=== PATIENT | male | born 1945 | race Caucasian/White ===

== ENCOUNTER 2019-08-25 13:31 | Outpatient (CLI) | payer MEDICARE, OTHER ==
[2019-08-25 18:03] LABS: CALCIUM 8.9 mg/dL (8.5-10.3); CREATININE 0.9 mg/dL (0.6-1.2)
== END 2019-08-25 13:32 | disposition home or self-care (01) ==
LOC: LAB.S 13:31
PROVIDERS: ATTEND Internal Medicine
DX: Z79.01 Long term (current) use of anticoagulants (principal); R60.9 Edema, unspecified
CPT/HCPCS: 36415; 80048; 85610

== ENCOUNTER 2019-09-01 11:24 | Outpatient (CLI) | payer MEDICARE, OTHER | END 2019-09-01 11:25 | disposition home or self-care (01) | LOC: LAB.S 11:24 | PROVIDERS: ATTEND Internal Medicine | DX: Z79.01 Long term (current) use of anticoagulants (principal); I48.91 Unspecified atrial fibrillation | CPT/HCPCS: 85610 ==

== ENCOUNTER 2019-09-08 10:56 | Outpatient (CLI) | payer MEDICARE, OTHER | END 2019-09-08 10:57 | disposition home or self-care (01) | LOC: LAB.S 10:56 | PROVIDERS: ATTEND Internal Medicine | DX: Z79.01 Long term (current) use of anticoagulants (principal); I48.91 Unspecified atrial fibrillation | CPT/HCPCS: 85610 ==

== ENCOUNTER 2019-09-30 13:20 | Outpatient (CLI) | payer MEDICARE, OTHER | END 2019-09-30 13:21 | disposition home or self-care (01) | LOC: LAB.S 13:20 | PROVIDERS: ATTEND Internal Medicine | DX: Z79.01 Long term (current) use of anticoagulants (principal); I48.91 Unspecified atrial fibrillation | CPT/HCPCS: 85610 ==

== ENCOUNTER 2020-06-21 13:44 | Outpatient (CLI) | payer MEDICARE, OTHER | END 2020-06-21 13:45 | disposition home or self-care (01) | LOC: LAB.S 13:44 | PROVIDERS: ATTEND Internal Medicine | DX: I48.91 Unspecified atrial fibrillation (principal); Z79.01 Long term (current) use of anticoagulants | CPT/HCPCS: 85610 ==

== ENCOUNTER 2020-07-23 12:37 | Outpatient (CLI) | payer MEDICARE, OTHER ==
[2020-07-23 20:08] LABS: BASOPHILS % (AUTO) 0.7 %; EOSINOPHILS # (AUTO) 0.1 10^3/uL (0.0-0.7); EOSINOPHILS % (AUTO) 1.5 %; HGB - HEMOGLOBIN 14.9 g/dL (14.0-18.0); LYMPHOCYTES # (AUTO) 1.4 10^3/uL (1.5-3.5); LYMPHOCYTES % (AUTO) 33.6 %; MEAN CORPUSCULAR HEMOGLOBIN 32.1 pg (27.0-31.0); MEAN CORPUSCULAR HGB CONC 34.2 g/dL (32.0-36.0); MEAN PLATELET VOLUME 11.5 fL (7.4-11.4); MONOCYTES # (AUTO) 0.4 10^3/uL (0.0-1.0); MONOCYTES % (AUTO) 8.6 %; NEUTROPHILS # (AUTO) 2.2 10^3/uL (1.5-6.6); NEUTROPHILS % (AUTO) 55.4 %; PLT - PLATELET COUNT 126 10^3/uL (130-450); RED BLOOD COUNT 4.64 10^6/uL (4.70-6.10); RED CELL DISTRIBUTION WIDTH 12.6 % (12.0-15.0); WHITE BLOOD COUNT 4.1 x10^3/uL (4.8-10.8)
[2020-07-23 20:09] LABS: INR 2.5 (0.8-1.2); PT - PROTHROMBIN TIME 26.5 secs (9.9-12.6)
[2020-07-23 20:14] LABS: ALBUMIN 4.3 g/dL (3.2-5.5); ALBUMIN/GLOBULIN RATIO 1.5 (1.0-2.2); ALKALINE PHOSPHATASE 66 IU/L (42-121); ALT ALANINE AMINOTRANSFERASE < 10 IU/L (10-60); AST ASPARTATE AMINOTRANSFERASE 13 IU/L (10-42); BILIRUBIN,TOTAL 0.8 mg/dL (0.2-1.0); BUN - BLOOD UREA NITROGEN 20 mg/dL (6-20); CALCIUM 9.1 mg/dL (8.5-10.3); CARBON DIOXIDE - CO2 29 mmol/L (21-32); CHLORIDE 103 mmol/L (101-111); GLUCOSE 84 mg/dL (70-100); SODIUM 141 mmol/L (135-145); TOTAL PROTEIN 7.1 g/dL (6.7-8.2)
== END 2020-07-23 12:38 | disposition home or self-care (01) ==
LOC: LAB.S 12:37
PROVIDERS: ATTEND Internal Medicine
DX: Z79.01 Long term (current) use of anticoagulants (principal); I48.91 Unspecified atrial fibrillation; I10 Essential (primary) hypertension; Z12.5 Encounter for screening for malignant neoplasm of prostate
CPT/HCPCS: 36415; 80053; 85025; 85610; G0103; 84153

== ENCOUNTER 2020-08-07 15:06 | Outpatient (CLI) | payer MEDICARE, OTHER | END 2020-08-07 15:07 | disposition home or self-care (01) | LOC: LAB.S 15:06 | PROVIDERS: ATTEND Internal Medicine | DX: I48.91 Unspecified atrial fibrillation (principal); Z79.01 Long term (current) use of anticoagulants | CPT/HCPCS: 85610 ==

== ENCOUNTER 2020-09-11 12:48 | Outpatient (CLI) | payer MEDICARE, OTHER | END 2020-09-11 12:49 | disposition home or self-care (01) | LOC: LAB.S 12:48 | PROVIDERS: ATTEND Internal Medicine | DX: I48.91 Unspecified atrial fibrillation (principal); Z79.01 Long term (current) use of anticoagulants | CPT/HCPCS: 85610 ==

== ENCOUNTER 2020-11-06 09:58 | Outpatient (CLI) | payer MEDICARE, OTHER | END 2020-11-06 09:59 | disposition home or self-care (01) | LOC: LAB.S 09:58 | PROVIDERS: ATTEND Internal Medicine | DX: I48.91 Unspecified atrial fibrillation (principal); Z79.01 Long term (current) use of anticoagulants | CPT/HCPCS: 85610 ==

== ENCOUNTER 2020-12-12 10:22 | Outpatient (CLI) | payer MEDICARE, OTHER | END 2020-12-12 10:23 | disposition home or self-care (01) | LOC: LAB.S 10:22 | PROVIDERS: ATTEND Internal Medicine | DX: I48.91 Unspecified atrial fibrillation (principal); Z79.01 Long term (current) use of anticoagulants | CPT/HCPCS: 85610 ==

== ENCOUNTER 2021-01-07 11:17 | Outpatient (CLI) | payer MEDICARE, OTHER | END 2021-01-07 11:18 | disposition home or self-care (01) | LOC: LAB.S 11:17 | PROVIDERS: ATTEND Internal Medicine | DX: I48.91 Unspecified atrial fibrillation (principal); Z79.01 Long term (current) use of anticoagulants | CPT/HCPCS: 85610 ==

== ENCOUNTER 2021-02-12 12:49 | Outpatient (CLI) | payer MEDICARE, OTHER | END 2021-02-12 12:50 | disposition home or self-care (01) | LOC: LAB.S 12:49 | PROVIDERS: ATTEND Internal Medicine | DX: I48.91 Unspecified atrial fibrillation (principal); Z79.01 Long term (current) use of anticoagulants | CPT/HCPCS: 36416; 85610 ==

== ENCOUNTER 2021-03-21 13:34 | Outpatient (CLI) | payer MEDICARE, OTHER | END 2021-03-21 13:35 | disposition home or self-care (01) | LOC: LAB.S 13:34 | PROVIDERS: ATTEND Internal Medicine | DX: I48.91 Unspecified atrial fibrillation (principal); Z79.01 Long term (current) use of anticoagulants | CPT/HCPCS: 36416; 85610 ==

== ENCOUNTER 2021-03-29 08:00 | Outpatient (CLI) | payer MEDICARE, OTHER ==
--- NOTE | 2021-03-29 16:54 | XRAY Report ---
PROCEDURE: Knee 3 View RT INDICATIONS: OSTEOARTHRITIS RIGHT KNEE TECHNIQUE: 3 views of the right knee(s) were acquired. COMPARISON: X-ray knee 05/25/2020 FINDINGS: Bones: No fractures or dislocations. No suspicious bony lesions. There is moderate to severe media l lateral as well as patellofemoral compartment narrowing. Prominent periarticular osteophytes are pr esent. Subchondral sclerosis is present. Chondrocalcinosis is noted. No erosions. There has been over all minimal progression compared to prior exam. Mild medial patellar subluxation is present. Soft tissues: Mild joint effusion. No suspicious soft tissue calcifications. IMPRESSION: Moderate to severe tricompartmental arthritic change with minimal interval progression. Reviewed by: Radha Davis MD on 03/29/2021 4:53 PM PDT Approved by: Radha Davis MD on 03/29/2021 4:53 PM PDT Station ID: [id number]
== END 2021-03-29 23:59 | disposition home or self-care (01) ==
LOC: DI.S 08:00
PROVIDERS: ATTEND Emergency Medicine
DX: M17.11 Unilateral primary osteoarthritis, right knee (principal)

== ENCOUNTER 2021-05-06 11:14 | Outpatient (CLI) | payer MEDICARE, OTHER | END 2021-05-06 11:15 | disposition home or self-care (01) | LOC: LAB.S 11:14 | PROVIDERS: ATTEND Internal Medicine | DX: I48.91 Unspecified atrial fibrillation (principal); Z79.01 Long term (current) use of anticoagulants | CPT/HCPCS: 36416; 85610 ==

== ENCOUNTER 2021-05-07 10:26 | Outpatient (CLI) | payer MEDICARE, OTHER ==
[2021-05-07 14:25] LABS: BASOPHILS % (AUTO) 0.5 %; EOSINOPHILS # (AUTO) 0.1 10^3/uL (0.0-0.7); EOSINOPHILS % (AUTO) 1.3 %; HCT - HEMATOCRIT 44.2 % (42.0-52.0); HGB - HEMOGLOBIN 14.8 g/dL (14.0-18.0); LYMPHOCYTES # (AUTO) 1.1 10^3/uL (1.5-3.5); LYMPHOCYTES % (AUTO) 26.7 %; MEAN CORPUSCULAR HEMOGLOBIN 31.2 pg (27.0-31.0); MEAN CORPUSCULAR HGB CONC 33.5 g/dL (32.0-36.0); MEAN CORPUSCULAR VOLUME 93.2 fL (80.0-94.0); MEAN PLATELET VOLUME 11.4 fL (7.4-11.4); MONOCYTES # (AUTO) 0.3 10^3/uL (0.0-1.0); MONOCYTES % (AUTO) 6.5 %; NEUTROPHILS # (AUTO) 2.6 10^3/uL (1.5-6.6); NEUTROPHILS % (AUTO) 64.7 %; PLT - PLATELET COUNT 126 10^3/uL (130-450); RED BLOOD COUNT 4.74 10^6/uL (4.70-6.10); RED CELL DISTRIBUTION WIDTH 12.6 % (12.0-15.0)
[2021-05-07 14:42] LABS: ALBUMIN 4.4 g/dL (3.2-5.5); ALBUMIN/GLOBULIN RATIO 1.4 (1.0-2.2); ALKALINE PHOSPHATASE 66 IU/L (42-121); ALT ALANINE AMINOTRANSFERASE < 10 IU/L (10-60); AST ASPARTATE AMINOTRANSFERASE 12 IU/L (10-42); BILIRUBIN,TOTAL 1.3 mg/dL (0.2-1.0); BUN - BLOOD UREA NITROGEN 17 mg/dL (6-20); CALCIUM 9.1 mg/dL (8.5-10.3); CARBON DIOXIDE - CO2 30 mmol/L (21-32); CHLORIDE 102 mmol/L (101-111); CHOLESTEROL 170 mg/dL; CREATININE 0.9 mg/dL (0.6-1.2); GFR - MDRD 82 (>89); GLUCOSE 97 mg/dL (70-100); HDL CHOLESTEROL 42 mg/dL; LDL CHOLESTEROL,CALCULATED 115 mg/dL; LDL/HDL RATIO 2.7 (<3.6); POTASSIUM 3.9 mmol/L (3.5-5.0); SODIUM 141 mmol/L (135-145); TOTAL PROTEIN 7.6 g/dL (6.7-8.2); TRIGLYCERIDES 64 mg/dL; VLDL CHOLESTEROL 13 mg/dL
== END 2021-05-07 10:27 | disposition home or self-care (01) ==
LOC: LAB.S 10:26
PROVIDERS: ATTEND Internal Medicine
DX: I10 Essential (primary) hypertension (principal); Z12.5 Encounter for screening for malignant neoplasm of prostate
CPT/HCPCS: 36415; 80053; 80061; 85025; G0103; 83721; 84153

== ENCOUNTER 2021-06-04 11:00 | Outpatient (CLI) | payer MEDICARE, OTHER ==
--- NOTE | 2021-06-04 15:33 | XRAY Report ---
PROCEDURE: Knee 4 View RT INDICATIONS: OA, R KNEE TECHNIQUE: 4 views of the right knee(s) were acquired. COMPARISON: 03/29/2021 FINDINGS: Bones: No fractures or dislocations. Subcortical cystic changes throughout the tibiofemoral joint. M oderately severe medial and lateral compartment joint space loss with prominent spur formation. There is bone on bone in the lateral compartment with weightbearing. No suspicious bony lesions. Soft tissues: There is a small to moderate, debris-containing joint effusion present. Chondrocalcinos is in medial and patellofemoral compartment is seen. There is moderate asymmetric periarticular soft tissue swelling. IMPRESSION: 1. Severe tricompartment right knee osteoarthritic changes. 2. Chondrocalcinosis and debris containing joint effusion. 3. Changes are stable compared to the prior study. Reviewed by: Any Bahena MD on 06/04/2021 3:32 PM PDT Approved by: Any Bahena MD on 06/04/2021 3:32 PM PDT Station ID: [id number]
== END 2021-06-04 23:59 | disposition home or self-care (01) ==
LOC: DI.N 11:00
PROVIDERS: ATTEND Orthopaedic Surgery
DX: M17.11 Unilateral primary osteoarthritis, right knee (principal); M11.261 Other chondrocalcinosis, right knee

== ENCOUNTER 2021-06-20 12:10 | Outpatient (CLI) | payer MEDICARE, OTHER | END 2021-06-20 12:11 | disposition home or self-care (01) | LOC: LAB.S 12:10 | PROVIDERS: ATTEND Internal Medicine | DX: I48.91 Unspecified atrial fibrillation (principal); Z79.01 Long term (current) use of anticoagulants | CPT/HCPCS: 36416; 85610 ==

== ENCOUNTER 2021-08-13 11:59 | Outpatient (CLI) | payer MEDICARE, OTHER | END 2021-08-13 12:00 | disposition home or self-care (01) | LOC: LAB.S 11:59 | PROVIDERS: ATTEND Internal Medicine | DX: I48.91 Unspecified atrial fibrillation (principal); Z79.01 Long term (current) use of anticoagulants | CPT/HCPCS: 36416; 85610 ==

== ENCOUNTER 2021-09-25 11:47 | Outpatient (CLI) | payer MEDICARE, OTHER | END 2021-09-25 11:48 | disposition home or self-care (01) | LOC: LAB.S 11:47 | PROVIDERS: ATTEND Internal Medicine | DX: I48.91 Unspecified atrial fibrillation (principal); Z79.01 Long term (current) use of anticoagulants | CPT/HCPCS: 36416; 85610 ==

== ENCOUNTER 2021-10-22 09:18 | Outpatient (CLI) | payer MEDICARE, OTHER | END 2021-10-22 09:19 | disposition home or self-care (01) | LOC: LAB.S 09:18 | PROVIDERS: ATTEND Internal Medicine | DX: I48.91 Unspecified atrial fibrillation (principal); Z79.01 Long term (current) use of anticoagulants | CPT/HCPCS: 36416; 85610 ==

== ENCOUNTER 2021-12-30 13:54 | Outpatient (CLI) | payer MEDICARE, OTHER | END 2021-12-30 13:55 | disposition home or self-care (01) | LOC: LAB.S 13:54 | PROVIDERS: ATTEND Internal Medicine | DX: I48.91 Unspecified atrial fibrillation (principal); Z79.01 Long term (current) use of anticoagulants | CPT/HCPCS: 36416; 85610 ==

== ENCOUNTER 2022-02-05 09:47 | Outpatient (CLI) | payer MEDICARE, OTHER | END 2022-02-05 09:48 | disposition home or self-care (01) | LOC: LAB.S 09:47 | PROVIDERS: ATTEND Registered Nurse | DX: I48.91 Unspecified atrial fibrillation (principal); Z79.01 Long term (current) use of anticoagulants | CPT/HCPCS: 36416; 85610 ==

== ENCOUNTER 2022-04-21 13:27 | Outpatient (CLI) | payer MEDICARE, OTHER | END 2022-04-21 13:28 | disposition home or self-care (01) | LOC: LAB.S 13:27 | PROVIDERS: ATTEND Registered Nurse | DX: I48.91 Unspecified atrial fibrillation (principal); Z79.01 Long term (current) use of anticoagulants | CPT/HCPCS: 36416; 85610 ==